=== PATIENT | male | born 2000 | race Caucasian/White ===

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

== ENCOUNTER 2021-10-25 22:01 | Emergency (ER) | payer MEDICAID ==
[~2021-10-25] VITALS: Ht 162.6 cm; Wt 70.5 kg
[2021-10-25] MEDS ORDERED: CHLO50TA53 PO (22:12)
[2021-10-25] MEDS ORDERED: CLON-592 PO (22:12)
[2021-10-25] MEDS ORDERED: TRAZ-257 PO (22:12)
[2021-10-25] MEDS ORDERED: ARIP400S3 IM (22:12)
[2021-10-25 22:39] LABS: BASOPHILS % (AUTO) 0.2 % (0.0-2.0); EOSINOPHILS % (AUTO) 1.4 % (1.0-6.0); HEMATOCRIT 41.1 % (41-53); HEMOGLOBIN 14.2 g/dL (13.5-17.5); LYMPHOCYTES # (AUTO) 3.6 K/uL (1.0-4.8); LYMPHOCYTES % (AUTO) 25.8 % (22.0-44.0); MEAN CORPUSCULAR HEMOGLOBIN 31.7 pg (26.0-34.0); MEAN CORPUSCULAR HGB CONC 34.6 G/dL (31.0-37.0); MEAN CORPUSCULAR VOLUME 92 fL (80-100); MONOCYTES # (AUTO) 0.8 K/uL (0.1-1.0); MONOCYTES % (AUTO) 5.7 % (2.0-9.0); NEUTROPHILS # (AUTO) 9.4 K/uL (1.8-7.7); NEUTROPHILS % (AUTO) 66.9 % (40.0-70.0); PLATELET COUNT (AUTO) 347 K/uL (150-450); RED BLOOD CELL COUNT(AUTO) 4.49 MIL/uL (4.50-5.90); RED CELL DISTRIBUTION WIDTH 12.2 % (11.5-14.5)
[2021-10-25 22:47] LABS: ANION GAP 8 mmol/L (8-16); CALCIUM, TOTAL 9.3 mg/dL (8.8-10.5); CARBON DIOXIDE 28 mmol/L (22-29); CHLORIDE 102 mmol/L (98-107); GLOMERULAR FILTR. RATE CALC > 60 mL/min (>60); GLUCOSE,RANDOM 77 mg/dL (70-110); POTASSIUM 4.4 mmol/L (3.5-5.1); SODIUM SERUM 138 mmol/L (136-145); UREA NITROGEN, BLOOD 12 mg/dL (7-18)
[2021-10-25 22:54] LABS: ALANINE AMINOTRANSFERASE 36 U/L (12-78); ALBUMIN 3.6 g/dL (3.4-5.0); ALKALINE PHOSPHATASE 89 U/L (46-116); ASPARTATE AMINOTRANSFERASE 17 U/L (15-37); BILIRUBIN,TOTAL 0.2 mg/dL (0.1-1.0); TOTAL PROTEIN, SERUM 7.6 g/dL (6.4-8.2)
[2021-10-25] MEDS ORDERED: LORazepam 1 MG TABLET PO ONE (23:15)
[2021-10-25 23:40] LABS: AMPHET/METH SCREEN,URINE NEGATIVE (NEGATIVE); BARBITURATE SCREEN, URINE NEGATIVE (NEGATIVE); BENZODIAZEPINES SCREEN,URINE NEGATIVE (NEGATIVE); CANNABINOID SCREEN,URINE POSITIVE (NEGATIVE); COCAINE SCREEN,URINE NEGATIVE (NEGATIVE); METHADONE SCREEN, URINE NEGATIVE (NEGATIVE); OPIATE SCREEN,URINE NEGATIVE (NEGATIVE)
[2021-10-25 23:43] LABS: PHENCYCLIDINE SCREEN,URINE NEGATIVE (NEGATIVE)
[2021-10-26] MEDS ORDERED: LORazepam 1 MG TABLET PO ONE (00:15)
[2021-10-26] MEDS ORDERED: IBUP-1554 PO (00:30)
[2021-10-26] MEDS ORDERED: IBUPROFEN 600 MG TABLET PO ONE (00:45)
[2021-10-26 01:20] VITALS: BP 115/67
== END 2021-10-26 01:30 | disposition home or self-care (01) ==
LOC: EMS 22:02
DX: F41.9 Anxiety disorder, unspecified (principal); M25.562 Pain in left knee; F15.10 Other stimulant abuse, uncomplicated; F32.9 Major depressive disorder, single episode, unspecified; F12.90 Cannabis use, unspecified, uncomplicated; F17.210 Nicotine dependence, cigarettes, uncomplicated; Z79.899 Other long term (current) drug therapy
CPT/HCPCS: 36415; 80053; 80307; 85025; 99283; G0480

== ENCOUNTER 2022-04-20 16:30 | Inpatient (IN) | payer MEDICAID ==
[~2022-04-20] VITALS: Ht 162.6 cm; Wt 76.0 kg
[~2022-04-20 16:30] MED LIST changes: +ARIP400S3 IM; +CHLO50TA61 PO; +CLON-592 PO; +IBUP-1554 PO; +TRAZ-257 PO
[2022-04-20] MEDS ORDERED: ZOLPIDEM TARTRATE 10 MG TABLET PO PRN (20:30)
[2022-04-20] MEDS ORDERED: HALOPERIDOL 5 MG TABLET PO PRN (20:30)
[2022-04-20] MEDS ORDERED: PNEUMOCOCCAL VACCINE POLYVALENT 0.5 ML VIAL [PPSV23] IM. ONE (21:45)
[2022-04-20 22:15] VITALS: BP 118/61
[2022-04-21] MEDS: LORazepam 2 MG TABLET PO PRN ×3 (02:01→20:12)
[2022-04-21 08:17] VITALS: BP 130/58
[2022-04-21] MEDS: NICOTINE 21 MG/24 HOUR PATCH TD SCH (09:00)
[2022-04-21] MEDS ORDERED: PETROLATUM,WHITE 28 GM JELLY TP PRN (18:45)
[2022-04-21] MEDS ORDERED: OMEPRAZOLE 20 MG CAPSULE PO PRN (18:45)
[2022-04-21] MEDS ORDERED: DOCUSATE SODIUM 100 MG CAPSULE PO PRN (18:45)
[2022-04-21] MEDS ORDERED: BACITRACIN 28 GM OINTMENT TP PRN (18:45)
[2022-04-21] MEDS ORDERED: LOPERAMIDE HCL 2 MG CAPSULE PO PRN (18:45)
[2022-04-21] MEDS ORDERED: MAG HYDROX/AL HYDROX/SIMETH ES 30 ML SUSPENSION UDCUP PO PRN (18:45)
[2022-04-21] MEDS ORDERED: CloNIDine HCL 0.1 MG TABLET PO PRN (18:45)
[2022-04-21] MEDS ORDERED: ONDANSETRON HCL 4 MG TABLET PO PRN (18:45)
[2022-04-21] MEDS ORDERED: MAGNESIUM HYDROXIDE SUSPENSION 30 ML UDCUP PO PRN (18:45)
[2022-04-21] MEDS ORDERED: ACETAMINOPHEN 325 MG TABLET PO PRN (18:45)
[2022-04-21] MEDS ORDERED: BENZOCAINE/MENTHOL LOZENGE PO PRN (18:45)
[2022-04-21] MEDS ORDERED: ALBUTEROL SULFATE HFA 90 MCG/PUFF 8 GM INHALER IH PRN (18:45)
[2022-04-21] MEDS ORDERED: IBUPROFEN 600 MG TABLET PO PRN (18:45)
[2022-04-21 20:15] VITALS: BP 99/61
[2022-04-22 08:31] VITALS: BP 112/60
[2022-04-22] MEDS: DIVALPROEX SODIUM 500 MG DR TABLET PO SCH ×2 (08:43→16:38)
[2022-04-22] MEDS ORDERED: ARIPiprazole 10 MG TABLET PO SCH (09:00)
[2022-04-22] MEDS: NICOTINE 21 MG/24 HOUR PATCH TD SCH (09:00)
[2022-04-22] MEDS ORDERED: DIVA-112 PO (19:00)
[2022-04-22] MEDS ORDERED: ARIP10TA38 PO (19:00)
[2022-04-26] MEDS ORDERED: ARIPiprazole ER SUSPENSION 400 MG PRE-FILLED DUAL CHAMBER SYRINGE IM SCH (09:00)
== END 2022-04-22 19:50 | disposition home or self-care (01) | DRG 753 ==
LOC: B2S 20:15
PROVIDERS: ADMIT Psychiatry & Neurology Psychiatry; ATTEND Psychiatry & Neurology Psychiatry
DX: F31.9 Bipolar disorder, unspecified (principal); R45.851 Suicidal ideations; I10 Essential (primary) hypertension; F10.10 Alcohol abuse, uncomplicated; Z87.891 Personal history of nicotine dependence
CPT/HCPCS: Z7610